=== PATIENT | male | born 1955 | race Caucasian/White ===

== ENCOUNTER 2021-01-05 07:37 | Day surgery (SDC) | payer OTHER ==
[~2021-01-05] VITALS: Ht 175.3 cm; Wt 95.7 kg
[~2021-01-05 07:37] MED LIST: ECOT81TA5 PO; FISH1000 PO; LOSA100T5 PO; METO1TAB7 PO; NS 1,000 ML IV ONE; OMEP10CASR PO; SENN-23 PO
[2021-01-05] MEDS ORDERED: LIDOCAINE 2% 100MG/5ML SDV (FOR ANES.) As Ordered ONE (07:38)
[2021-01-05] MEDS ORDERED: propofoL 500 MG/50 ML VIAL As Ordered ONE (07:38)
[2021-01-05] MEDS ORDERED: fentaNYL 100 MCG/2 ML INJECTION (J3010) As Ordered ONE (07:39)
--- NOTE | 2021-01-05 09:01 | ROOR ---
Patient Name: Chi Burger Procedure Date: 01/05/2021 8:42 AM Date of : 1955 Age: 65 Room: [facility] Gender: Male Note Status: Finalized Procedure: Upper Endoscopy + Biopsies Indications: Heartburn, Exclusion of Moncada's esophagus Providers: Pierre Flores MD Referring MD: Orestes Robins MD Requesting Provider: Medicines: Monitored Anesthesia Care Complications: No immediate complications. Procedure: Pre-Anesthesia Assessment: - The heart rate, respiratory rate, oxygen saturations, blood pressure, adequacy of pulmonary ventilation, and response to care were monitored throughout the procedure. The Endoscope was introduced through the mouth, and advanced to the second part of duodenum. The upper GI endoscopy was accomplished without difficulty. The patient tolerated the procedure well. Findings: The Z-line was regular and was found 40 cm from the incisors. Multiple biopsies were obtained with cold forceps for evaluation to rule out Moncada's Esophagus randomly at the gastroesophageal junction. Multiple dispersed, large non-bleeding erosions were found on the greater curvature of the stomach. There were no stigmata of recent bleeding. Biopsies were taken with a cold forceps for Helicobacter pylori testing. The exam of the duodenum was otherwise normal. Impression: - Z-line regular, 40 cm from the incisors. - Non-bleeding erosive gastropathy. Biopsied. - Multiple biopsies were obtained at the gastroesophageal junction. - The examination was otherwise normal. Recommendation: - Patient has a contact number available for emergencies. The signs and symptoms of potential delayed complications were discussed with the patient. Return to normal activities tomorrow. Written discharge instructions were provided to the patient. - High fiber diet. - Discharge patient to home. - Follow an antireflux regimen. - Continue present medications. - Await pathology results. - Telephone GI clinic for pathology results in 1 week. - Return to referring physician. - The findings and recommendations were discussed with the patient. Procedure Code(s): --- Professional --- 71807, Esophagogastroduodenoscopy, flexible, transoral; with biopsy, single or multiple Diagnosis Code(s): --- Professional --- K31.89, Other diseases of stomach and duodenum R12, Heartburn CPT copyright 2019 [employer]. All rights reserved. The codes documented in this report are preliminary and upon sponge packer review may be revised to meet current compliance requirements. Pierre Flores MD Pierre Flores MD 01/05/2021 9:00:26 AM Electronically signed by Pierre Flores MD Number of Addenda: 0 Note Initiated On: 01/05/2021 8:42 AM Estimated Blood Loss: Estimated blood loss: none.
--- NOTE | 2021-01-05 09:15 | ROOR ---
Patient Name: Chi Burger Procedure Date: 01/05/2021 8:43 AM Date of : 1955 Age: 65 Room: [facility] Gender: Male Note Status: Finalized Procedure: Total Colonoscopy to Cecum Indications: Change in bowel habits Providers: Pierre Flores MD Referring MD: Orestes Robins MD Requesting Provider: Medicines: Monitored Anesthesia Care Complications: No immediate complications. Procedure: Pre-Anesthesia Assessment: - The heart rate, respiratory rate, oxygen saturations, blood pressure, adequacy of pulmonary ventilation, and response to care were monitored throughout the procedure. The Colonoscope was introduced through the anus and advanced to the cecum, identified by appendiceal orifice and ileocecal valve. The colonoscopy was performed without difficulty. The patient tolerated the procedure well. The quality of the bowel preparation was good. Findings: The perianal and digital rectal examinations were normal. Non-bleeding internal hemorrhoids were found during retroflexion. The hemorrhoids were small and Grade I (internal hemorrhoids that do not prolapse). No other significant abnormalities were identified in a careful examination of the remainder of the colon. The exam was otherwise without abnormality on direct and retroflexion views. A diffuse area of mild melanosis was found in the entire colon. The exam was otherwise without abnormality. Impression: - Non-bleeding internal hemorrhoids. - The examination was otherwise normal on direct and retroflexion views. - Melanosis in the colon. - The examination was otherwise normal. - No specimens collected. - The exam was otherwise normal to the cecum. Recommendation: - Patient has a contact number available for emergencies. The signs and symptoms of potential delayed complications were discussed with the patient. Return to normal activities tomorrow. Written discharge instructions were provided to the patient. - High fiber diet. - Discharge patient to home. - Continue present medications. - Use original regular Metamucil one tablespoon PO daily. - Repeat colonoscopy in 10 years for screening purposes. - Return to referring physician. - The findings and recommendations were discussed with the patient. Procedure Code(s): --- Professional --- 74317, Colonoscopy, flexible; diagnostic, including collection of specimen(s) by brushing or washing, when performed (separate procedure) Diagnosis Code(s): --- Professional --- K64.0, First degree hemorrhoids K63.89, Other specified diseases of intestine R19.4, Change in bowel habit CPT copyright 2019 [employer] [place] [employer]. All rights reserved. The codes documented in this report are preliminary and upon automatic buffer review may be revised to meet current compliance requirements. Pierre Flores MD Pierre Flores MD 01/05/2021 9:15:26 AM Electronically signed by Pierre Flores MD Number of Addenda: 0 Note Initiated On: 01/05/2021 8:43 AM Estimated Blood Loss: Estimated blood loss: none.
[2021-01-05 09:44] VITALS: BP 141/66
== END 2021-01-05 09:46 | disposition home or self-care (01) ==
LOC: M OPP 07:37
PROVIDERS: ATTEND Internal Medicine Gastroenterology
DX: K63.89 Other specified diseases of intestine (principal); K64.8 Other hemorrhoids; R19.4 Change in bowel habit; K31.89 Other diseases of stomach and duodenum; I10 Essential (primary) hypertension; R12 Heartburn; Z79.82 Long term (current) use of aspirin; Z79.899 Other long term (current) drug therapy
CPT/HCPCS: 43239; 45378; 88305; 88342; J3010